=== PATIENT | female | born 2000 | race Hispanic/Latino ===

== ENCOUNTER 2025-04-03 17:18 | Emergency (ER) | payer MEDICAID, OTHER ==
[2025-04-03] MEDS ORDERED: Acetaminophen 500 MG TAB ONE (17:40)
[2025-04-03] MEDS ORDERED: Bacitracin 1 PK ONE (17:41)
[2025-04-03] MEDS ORDERED: Ibuprofen 800 MG TAB ONE (17:41)
== END 2025-04-03 18:00 | disposition home or self-care (01) ==
LOC: MADERS 17:18
DX: T22.111A Burn of first degree of right forearm, initial encounter (principal); T22.10XA Burn of first degree of shoulder and upper limb, except wrist and hand, unspecified site, initial encounter; T23.141A Burn of first degree of multiple right fingers (nail), including thumb, initial encounter; T31.0 Burns involving less than 10% of body surface; X10.2XXA Contact with fats and cooking oils, initial encounter
CPT/HCPCS: 99283